=== PATIENT | male | born 2000 | race Caucasian/White ===

== ENCOUNTER 2020-10-10 10:08 | Emergency (ER) | payer OTHER, MEDICAID ==
[~2020-10-10] VITALS: Ht 177.8 cm; Wt 61.2 kg
[2020-10-10 10:43] LABS: ABSOLUTE EOSINOPHILS 0.1 thou/uL (0.0-0.7); ABSOLUTE LYMPHOCYTES 2.8 thou/uL (0.8-5.3); ABSOLUTE MONOCYTES 0.7 thou/uL (0.0-1.2); ABSOLUTE NEUTROPHILS 3.1 thou/uL (1.6-8.1); BASOPHILS 0.5 %; HEMATOCRIT 45.8 % (42.0-52.0); HEMOGLOBIN 15.9 gm/dL (14.0-18.0); LYMPHOCYTES 41.4 %; MCH 31.8 pg (26.0-34.0); MCHC 34.7 g/dL (28.0-37.0); MCV 91.7 fL (80.0-100.0); MONOCYTES 9.6 %; MPV 7.7 fl. (7.2-11.1); NUCLEATED RBCS 0 /100WBC; PLATELET COUNT* 210 thou/uL (150-400); POLYS 46.5 %; RBC 4.99 mil/uL (4.50-6.00); RDW-CV 12.8 % (10.5-14.5); WBC 6.7 thou/uL (4.0-11.0)
[2020-10-10 10:52] LABS: CALCIUM 8.8 mg/dL (8.5-10.1); CREATININE 0.9 mg/dL (0.6-1.3); POTASSIUM 3.6 mmol/L (3.5-5.1)
[2020-10-10 11:36] VITALS: BP 146/72
== END 2020-10-10 11:38 | disposition home or self-care (01) ==
LOC: M.ERS 10:08
PROVIDERS: Nurse Practitioner
DX: K62.5 Hemorrhage of anus and rectum (principal); L29.9 Pruritus, unspecified; R10.84 Generalized abdominal pain